=== PATIENT | male | born 1960 | race Caucasian/White ===

== ENCOUNTER 2018-04-17 16:26 | Emergency (ER) | payer OTHER ==
--- NOTE | 2018-04-17 19:39 | ED GI/GU/ABDOMINAL COMPLAINT ---
History of Present Illness General Chief Complaint: Male Genitourinary Problems Stated Complaint: PAIN UNDER TESTICULAR AREA Source: patient Exam Limitations: no limitations Vital Signs & Intake/Output Vital Signs & Intake/Output Vital Signs Date Time Temp Pulse Resp B/P B/P Pulse O2 O2 Flow FiO2 Mean Ox Delivery Rate 04/17 2009 85 18 162/102 100 Room Air 04/17 1930 Room Air 04/17 1630 98.2 91 15 184/106 98 Room Air Room Air Allergies Coded Allergies: No Known Allergies (04/17/18) Reconcile Medications Doxycycline Hyclate 100 MG TABLET 1 TAB PO BID prostate Triage Note: PT TO ED FOR C/C OF PAIN TO PERINEAL AREA X 1 WEEK. DENIES TESTICULAR PAIN OR PENILE DISCHARGE. Triage Nurses Notes Reviewed? yes Onset: Gradual Duration: week(s): Timing: recent history Quality/Severity: moderate, sharpness Severity Numbers: 7 HPI: 57-year-old male with history of BPH, hypertension presents to emergency department complaining of perennial pain intermittently 2 weeks. Patient states that he first experienced pain during sexual intercourse during orgasm. He has had pain on and off since. He states the pain is worse during orgasm, 7/ 10, sharp, perineal. Patient states that for the past four days he has had pain even while at rest, described as 4/10, aching, worse with sitting. Patient reports mild perennial aching with urination. He also reports recent history of urinary hesitancy. The patient denies testicular pain, hematuria, penile discharge, abdominal pain, fevers, chills, malaise, pain with defecation. Patient is monogamous with his . (Xin Kerr) Past History Travel History Traveled to [place] past 21 day No Medical History Any Pertinent Medical History? see below for history Neurological: NONE EENT: NONE Cardiovascular: hypertension Renal: benign prost hyperplasia Psychiatric: anxiety, depression Surgical History Surgical History: non-contributory Psychosocial History What is your primary language Somali Tobacco Use: Never used ETOH Use: heavy use Illicit Drug Use: denies illicit drug use Family History Hx Contributory? No (Xin Kerr) Review of Systems Review of Systems Constitutional: Reports: no symptoms. EENTM: Reports: no symptoms. Respiratory: Reports: no symptoms. Cardiovascular: Reports: no symptoms. GI: Reports: no symptoms. Genitourinary: Reports: see HPI. Musculoskeletal: Reports: no symptoms. Skin: Reports: no symptoms. Neurological/Psychological: Reports: no symptoms. Hematologic/Endocrine: Reports: no symptoms. Immunologic/Allergic: Reports: no symptoms. All Other Systems: Reviewed and Negative (Xin Kerr) Physical Exam Physical Exam General Appearance: well developed/nourished, no apparent distress, alert, awake Head: atraumatic, normal appearance Eyes: Bilateral: normal appearance. Ears, Nose, Throat, Mouth: hearing grossly normal Neck: normal inspection, supple, full range of motion Respiratory: normal breath sounds, no respiratory distress, lungs clear Cardiovascular: regular rate/rhythm Gastrointestinal: normal bowel sounds, soft, non-tender, no organomegaly Rectal: normal inspection, normal rectal tone, no boggy or tender prostate Male Genitals: normal genitalia, no tenderness, no skin changes Extremities: normal range of motion Neurologic/Psych: awake, alert, oriented x 3 Skin: intact, normal color, warm/dry Core Measures ACS in differential dx? No Sepsis Present: No Sepsis Focused Exam Completed? No (Xin Kerr) Progress Differential Diagnosis: bowel obstruction, epididymitis, hernia, hemorrhoids, orchitis, prostatitis, pyelonephritis, STD, ureterolithiasis, urinary retention, urethritis, UTI/pyelo Plan of Care: Orders Procedure Date/time Status URINALYSIS 04/17 1632 Complete Laboratory Tests 04/17/18 1654: Urine Color YEL, Urine Clarity CLEAR, Urine pH 6.0, Ur Specific [place] >= 1.030 , Urine Protein NEG, Urine Ketones NEG, Urine Nitrite NEG, Urine Bilirubin NEG, Urine Urobilinogen 0.2, Ur Leukocyte Esterase NEG, Ur Microscopic EXAM NOT REQUIRED, Urine Hemoglobin NEG, Urine Glucose NEG Urinalysis shows no acute abnormalities. Symptoms are most consistent with prostatitis despite the patient's normal prostate exam. Patient is in no acute distress, nontoxic appearing. He is afebrile. Will have patient follow up with urology and begin doxycycline. Patient agrees with this plan. He feels comfortable leaving without lab testing. Discussed findings with Dr. Corrigan who agrees with the plan of care. Patient is hypertensive however states "its because I'm in the hospital". He will follow up with PCP from BP check. Initial ED EKG: none (Xni Kerr) Departure Departure Disposition: HOME OR SELF CARE Condition: Stable Clinical Impression Primary Impression: Perineal pain Referrals: Mateusz Huang MD (PCP/Family) Additional Instructions: Begin Antibiotics as prescribed. Have your primary care doctor re-check your blood pressure. Call your urologist tomorrow to set up appointment for later this week or next week. They may wish to extend the antibiotics the medication. Return if if worsening symptoms or concerns. Please note that there might be incidental findings in your evaluation that are unrelated to the current emergency department visit. Please notify your primary care doctor about this emergency department visit in order to obtain and review all of the testing performed so that these incidental findings can be monitored as needed. If you had an x-ray performed, please understand that some fractures may not be seen on the initial set of x-rays. If your symptoms persist you might need a repeat set of x-rays to check for such a fracture. If you had a laceration evaluated, please understand that foreign bodies such as glass or wood may not be visible to the naked eye or on plain x-rays. If the wound becomes red, swollen, increasingly more painful or if there is any drainage from the wound, please have it reevaluated by a physician for the possibility of a retained foreign body. If you're unable to follow up as outlined in the discharge instructions please return to the emergency department. Thank you for choosing the [facility] Emergency Department for your care. It was a pleasure to serve you today. Departure Forms: Customer Survey General Discharge Information Prescriptions: Current Visit Scripts Doxycycline Hyclate 1 TAB PO BID #28 TAB (Xin Kerr) PA/ONLINE MERCHANDISING MANAGER Co-Sign Statement Statement: ED Attending supervision documentation- I saw and evaluated the patient. I have also reviewed all the pertinent lab results and diagnostic results. I agree with the findings and the plan of care as documented in the PA's/ONLINE MERCHANDISING MANAGER's documentation. x I have reviewed the ED Record and agree with the PA's/ONLINE MERCHANDISING MANAGER's documentation. [] Additions or exceptions (if any) to the PAs/ONLINE MERCHANDISING MANAGER's note and plan are summarized below: [] (Meenu REYNOLDS,Spencer)
[2018-04-17] MEDS ORDERED: DOXYCYCLINE HY100 M4 PO (20:08)
[2018-04-17 20:09] VITALS: BP 162/102
== END 2018-04-17 20:12 ==
LOC: ERH 16:26
DX: R10.2 Pelvic and perineal pain (principal)
CPT/HCPCS: 81003